=== PATIENT | male | born 1960 | race Caucasian/White ===

== ENCOUNTER → 2017-11-18 | Outpatient (CLI) | payer OTHER ==
--- NOTE | 2017-11-18 18:12 | CT ---
Procedure: CT LUNG SCREENING Exam Date: 11/18/2017 Ordering Provider: John Crespo Clinical Indication: LUNG CANCER screening Comparison: None Technique: Using a multislice scanner, sequential axial imaging was obtained in the thorax from the level of the thoracic inlet through the lung bases without IV contrast. A low dose protocol was utilized. 2D sagittal and coronal reconstructed images were obtained. This exam was performed according to our departmental dose optimization program which includes use of automated exposure control, adjustment of the mA and/or kV according to patient size and/or use of iterative reconstruction technique. FINDINGS: Lungs and large airways: No focal lung consolidation. Subcentimeter calcified granuloma in the right upper lobe. 2 mm nodule in the right middle lobe on axial image 89. There is a 6 mm nodule in the left lower lobe on axial image 99. Pleura: No pleural effusion. No pneumothorax. Mediastinum and lucho: No lymphadenopathy Heart and great vessels: The heart is not enlarged. No pericardial effusion. No aortic aneurysm. Aortic and coronary artery calcifications. Chest wall, lower neck, axillae: No axillary lymphadenopathy. Upper abdomen: Nonacute Bones: Nonacute IMPRESSION: 1. Bilateral lung nodules, largest measuring 6 mm in the left lower lobe. Lung RADS category 3, probably benign. Six-month follow-up with low-dose CT is recommended. Electronically signed by: Samir Oliveira MD 11/18/2017 6:11 PM CDT
== END ==
LOC: CT 15:42
PROVIDERS: ATTEND Family Medicine
DX: Z87.891 Personal history of nicotine dependence (principal); R91.8 Other nonspecific abnormal finding of lung field

== ENCOUNTER → 2018-05-14 | Outpatient (CLI) | payer OTHER ==
--- NOTE | 2018-05-14 14:08 | CT ---
Procedure: CT LUNG SCREENING Exam Date: 05/14/2017. Ordering Provider: John Crespo Clinical Indication: HISTORY OF TOBACCO DEPENDENCY This patient meets eligibility criteria for low-dose CT lung cancer screening. Comparison: Low-dose CT lung cancer screening study 11/18/2017. Technique: Using a multislice scanner, sequential helical axial imaging was obtained in the thorax, 2.5 mm thickness, 2.5 mm separation, from the level of the thoracic inlet through the lung bases without IV contrast. A low dose protocol was utilized: CTDI: 1.76 mGy. 120. kVp. 45 mA. 2D sagittal and coronal reconstructed images, 6.0 mm thickness, were obtained. This exam was performed according to our departmental dose optimization program which includes use of automated exposure control, adjustment of the mA and/or kV according to patient size and/or use of iterative reconstruction technique. Nodule measurements under 10 mm are given as mean value of 3 axes diameters. FINDINGS: Lungs and large airways: Again noted is a 6 mm solid nodule medial left lower lobe lung base, axial series 2, image 100. Stable solid subpleural 3 mm nodule lateral right middle lobe on image 85. Stable pleural-parenchymal scarring inferior lingula. No new nodules. No masses or focal infiltrates. Pleura and space: Negative. Mediastinum and lucho: evaluation limited by low dose technique and lack of IV contrast. No duran lymph node enlargement or new large soft tissue masses. Heart and great vessels: Atherosclerotic calcifications aorta, proximal right innominate artery, and coronary vessels. Chest wall, lower neck, axillae: Evaluation also limited by same factors as described above. Unremarkable. Upper abdomen: No free fluid or free air in the included peritoneal space. No fatty stranding or fascial thickening. Included organs unremarkable. Osseous structures: Evaluation limited by low dose MIP technique. Spondylosis midthoracic spine. Bilateral sternoclavicular arthrosis. No lytic or blastic lesions. IMPRESSION: Stable 6 mm solid nodule in the medial basal region of the left lower lobe.. [facility] Best Practice recommendations: Please see below for Lung RADS category and FOLLOW-UP.* *Lung RADS category CATEGORY 2- Nodules with a very low likelihood (less than 1%) of becoming a clinically active cancer due to size or lack of growth. Nodules: Cat 3 or 4 nodule unchanged for 3 or more months. FOLLOW-UP: Continue annual screening with a Low Dose Chest CT in 12 months for re-evaluation. Electronically signed by: Yaya Franco MD 05/14/2018 2:04 PM [facility]
== END ==
LOC: CT 09:00
PROVIDERS: ATTEND Family Medicine
DX: Z87.891 Personal history of nicotine dependence (principal); R91.1 Solitary pulmonary nodule